=== PATIENT | male | born 1980 | race Caucasian/White ===

== ENCOUNTER 2017-06-26 16:21 | Emergency (ER) | payer SELFPAY ==
--- NOTE | 2017-06-26 17:12 | ER ---
Nurse's Notes [facility] Name: Jean Bautista Age: 37 yrs Sex: Male : 1980 Arrival Date: 06/26/2017 Time: 16:25 Bed 12 Private MD: Diagnosis: dental abscess Presentation: 06/26 16:46 Presenting complaint: Patient states: i have a bad tooth infection on my L upper side hj since yesterday;. Transition of care: patient was not received from another setting of care. Onset of symptoms was June 26, 2017. Care prior to arrival: None. 16:46 Method Of Arrival: Ambulatory hj 16:46 Acuity: ELIZA 4 hj Triage Assessment: 16:47 General: Appears in no apparent distress. uncomfortable, Behavior is calm, cooperative, hj appropriate for age. Pain: Complains of pain in left cheek and left jaw. 16:49 EENT: Reports pain. hj Historical: - Allergies: 16:47 No Known Allergies; hj - Home Meds: 16:47 None [Active]; hj - PMHx: 16:47 None; hj - PSHx: 16:47 None; hj - Immunization history:: Adult Immunizations unknown. - Social history:: Smoking status: Patient uses tobacco products, Patient/guardian denies using alcohol. Screenin:41 Abuse screen: Denies threats or abuse. Denies injuries from another. Nutritional hj screening: No deficits noted. Tuberculosis screening: No symptoms or risk factors identified. Fall Risk None identified. Assessment: 17:42 General: Appears in no apparent distress. uncomfortable, Behavior is calm, cooperative, hj appropriate for age. EENT: Reports pain since tooth pain since yesterday. Vital Signs: 16:48 BP 157 / 99; Pulse 63; Resp 18; Temp 98.0(O); Pulse Ox 99% on R/A; Weight 124.28 kg; hj Height 6 ft. 2 in. (187.96 cm); Pain 10/10; 16:48 Body Mass Index 35.18 (124.28 kg, 187.96 cm) ED Course: 16:25 Patient arrived in ED. mr 16:47 Triage completed. hj 16:48 Arm band placed on right wrist. hj 16:57 Nichole Phan [facility]C [facility]. kb 16:57 Mahesh Rodríguez MD is Attending Physician. kb 17:08 Edward Bhatti, RN is Primary Nurse. hj 17:41 No provider procedures requiring assistance completed. Patient did not have IV access hj during this emergency room visit. 17:42 Patient has correct armband on for positive identification. hj Administered Medications: 17:05 Drug: Augmentin 875 mg Route: PO; hj 17:40 Follow up: Response: No adverse reaction hj Outcome: 17:11 Discharge ordered by MD. kb 17:41 Discharged to home ambulatory, with family. hj 17:41 Condition: stable 17:41 Discharge instructions given to patient, family, Instructed on discharge instructions, follow up and referral plans. medication usage, Demonstrated understanding of instructions, follow-up care, medications, Prescriptions given X 1. 17:42 Patient left the ED. Signatures: Nichole Phan, [employer] SUPERVISOR-C [employer] SUPERVISOR-Bianca Roa mr Edward Bhatti, RN RN hj Corrections: (The following items were deleted from the chart) 16:50 16:48 Pulse 63bpm; Resp 18bpm; Pulse Ox 99% RA; Temp 98.0F Oral; 124.28 kg; Height 6 hj ft. 2 in.; BMI: 35.1; Pain 10/10; hj
--- NOTE | 2017-06-26 17:12 | EDPHYS ---
Physician Documentation [facility] Name: Jean Bautista Age: 37 yrs Sex: Male : 1980 Arrival Date: 06/26/2017 Time: 16:25 Bed 12 Private MD: ED Physician Mahesh Rodríguez HPI: 06/26 17:05 This 37 yrs old Male presents to ER via Ambulatory with complaints of kb Toothache. 17:05 The patient presents with pain, redness, swelling. The problem is located in the lower kb left second molar. Onset: The symptoms/episode began/occurred 4 day(s) ago. Duration: The symptoms are continuous, and are unchanged since they started. Modifying factors: The symptoms are alleviated by nothing, the symptoms are aggravated by nothing. Associated signs and symptoms: Pertinent positives: pain, redness in area, swelling, Pertinent negatives: anorexia, chills, dysphagia, fever, inability to eat, nausea, vomiting. Severity of symptoms: At their worst the symptoms were moderate, in the emergency department the symptoms are unchanged. The patient has not experienced similar symptoms in the past. The patient has not recently seen a physician. Historical: - Allergies: 16:47 No Known Allergies; hj - Home Meds: 16:47 None [Active]; hj - PMHx: 16:47 None; hj - PSHx: 16:47 None; hj - Immunization history:: Adult Immunizations unknown. - Social history:: Smoking status: Patient uses tobacco products, Patient/guardian denies using alcohol. ROS: 17:05 Constitutional: Negative for fever, chills, and weight loss, Cardiovascular: Negative kb for chest pain, palpitations, and edema, Respiratory: Negative for shortness of breath, cough, wheezing, and pleuritic chest pain, Abdomen/GI: Negative for abdominal pain, nausea, vomiting, diarrhea, and constipation, MS/Extremity: Negative for injury and deformity, Skin: Negative for injury, rash, and discoloration, Neuro: Negative for headache, weakness, numbness, tingling, and seizure. 17:05 ENT: Positive for dental pain, Gum pain Teeth pain Exam: 17:05 Constitutional: This is a well developed, well nourished patient who is awake, alert, kb and in no acute distress. Head/Face: Normocephalic, atraumatic. Chest/axilla: Normal chest wall appearance and motion. Nontender with no deformity. No lesions are appreciated. Cardiovascular: Regular rate and rhythm with a normal S1 and S2. No gallops, murmurs, or rubs. Normal PMI, no JVD. No pulse deficits. Respiratory: Lungs have equal breath sounds bilaterally, clear to auscultation and percussion. No rales, rhonchi or wheezes noted. No increased work of breathing, no retractions or nasal flaring. Abdomen/GI: Soft, non-tender, with normal bowel sounds. No distension or tympany. No guarding or rebound. No evidence of tenderness throughout. Skin: Warm, dry with normal turgor. Normal color with no rashes, no lesions, and no evidence of cellulitis. MS/ Extremity: Pulses equal, no cyanosis. Neurovascular intact. Full, normal range of motion. Neuro: Awake and alert, GCS 15, oriented to person, place, time, and situation. Cranial nerves II-XII grossly intact. Motor strength 5/5 in all extremities. Sensory grossly intact. Cerebellar exam normal. Normal gait. 17:05 ENT: Dental exam: gum swelling, pain, that is moderate, specifically in the lower left second molar (#18). Vital Signs: 16:48 BP 157 / 99; Pulse 63; Resp 18; Temp 98.0(O); Pulse Ox 99% on R/A; Weight 124.28 kg; hj Height 6 ft. 2 in. (187.96 cm); Pain 10/10; 16:48 Body Mass Index 35.18 (124.28 kg, 187.96 cm) MDM: 16:57 Patient medically screened. kb 17:05 Data reviewed: vital signs, nurses notes. Data interpreted: Pulse oximetry: on room air kb is 99 %. Interpretation: normal. Counseling: I had a detailed discussion with the patient and/or guardian regarding: the historical points, exam findings, and any diagnostic results supporting the discharge/admit diagnosis, the need for outpatient follow up, a dentist, to return to the emergency department if symptoms worsen or persist or if there are any questions or concerns that arise at home. Administered Medications: 17:05 Drug: Augmentin 875 mg Route: PO; 17:40 Follow up: Response: No adverse reaction Disposition: 06/27 10:48 Co-signature as Attending Physician, Mahesh Rodríguez MD I agree with the assessment and mohit plan of care. Disposition: 06/26/17 17:11 Discharged to Home. Impression: dental abscess. - Condition is Stable. - Discharge Instructions: Dental Abscess, Dental Pain, [id number]. - Prescriptions for Augmentin 875- 125 mg Oral Tablet - take 1 tablet by ORAL route every 12 hours for 7 days; 14 tablet. - Medication Reconciliation Form, Thank You Letter, Antibiotic Education, Prescription Opioid Use, Work release form form. - Follow up: Emergency Department; When: As needed; Reason: Worsening of condition. Follow up: Private Physician; When: 2 - 3 days; Reason: Recheck today's complaints, Continuance of care, Re-evaluation by your physician. Signatures: Nichole Phan, MAURI-C DIRECTOR OF LOGISTICS-Mahesh Luna MD MD cha Joaquin, Henry, RN RN
[2017-06-26] MEDS ORDERED: AMOX/K CLAV 875 MG TAB ONE (17:27)
== END 2017-06-26 17:42 | disposition home or self-care (01) ==
LOC: ER 16:21
DX: K04.7 Periapical abscess without sinus (principal)
CPT/HCPCS: 99283

== ENCOUNTER 2017-09-11 03:37 | Emergency (ER) | payer SELFPAY ==
--- NOTE | 2017-09-11 04:15 | ER ---
Nurse's Notes [facility] Name: Jean Bautista Age: 37 yrs Sex: Male : 1980 Arrival Date: 09/11/2017 Time: 03:40 Bed 16 Private MD: Diagnosis: Cellulitis of buttock;Dental caries Presentation: 09/11 03:56 Presenting complaint: Patient states: L lower tooth pain for several days and abscess aa1 to gluteal cleft that he noticed today. Reports pain and redness to sacrum. States he has had a previous abscess in the same place that he had to have surgery on a few years ago. Transition of care: patient was not received from another setting of care. Onset of symptoms was September 09, 2017. Risk Assessment: Do you want to hurt yourself or someone else? Patient reports no desire to harm self or others. Initial Sepsis Screen: Does the patient meet any 2 criteria? No. Patient's initial sepsis screen is negative. Does the patient have a suspected source of infection? Yes: Skin breakdown/wound. Care prior to arrival: None. 03:56 Method Of Arrival: Ambulatory aa1 03:56 Acuity: ELIZA 3 aa1 Historical: - Allergies: 04:08 No Known Allergies; aa1 - Home Meds: 04:08 None [Active]; aa1 - PMHx: 04:08 Hypertension; aa1 - PSHx: 04:08 None; aa1 - Immunization history:: Flu vaccine is not up to date. - Social history:: Smoking status: Patient/guardian denies using tobacco. - Ebola Screening: : No symptoms or risks identified at this time. Screenin:38 Abuse screen: Denies threats or abuse. Denies injuries from another. Nutritional bs1 screening: No deficits noted. Tuberculosis screening: No symptoms or risk factors identified. Fall Risk None identified. Assessment: 04:09 General: Appears uncomfortable, obese, Behavior is cooperative, anxious. Pain: bs1 Complains of pain in left lower back tooth/cyst noted to buttocks. Neuro: Level of Consciousness is awake, alert, obeys commands, Oriented to person, place, time, situation. Cardiovascular: Denies chest pain, shortness of breath, Heart tones S1 S2 present Capillary refill < 3 seconds Patient's skin is warm and dry. Respiratory: Airway is patent Trachea midline Respiratory effort is even, unlabored, Respiratory pattern is regular, symmetrical, Breath sounds are clear bilaterally. GI: No deficits noted. No signs and/or symptoms were reported involving the gastrointestinal system. : No deficits noted. No signs and/or symptoms were reported regarding the genitourinary system. EENT: Poor dentition noted. reports pain to bottom back left of tooth. Derm: Skin is intact, Skin is pink, warm \\T\\ dry. cyst noted to buttock area, states that Dr Dhillon has had to drain it before in the past. Musculoskeletal: Circulation, motion, and sensation intact. Capillary refill < 3 seconds. 04:39 Reassessment: Patient informed Nurse that Blood pressure 170/100 is patients "norm". bs1 Vital Signs: 03:56 BP 165 / 116; Pulse 66; Resp 16; Temp 97.7; Pulse Ox 97% on R/A; Weight 130.63 kg; aa1 Height 6 ft. 2 in. (187.96 cm); Pain 8/10; 04:39 BP 170 / 100; Pulse 68; Resp 16; Pulse Ox 100% on R/A; Pain 7/10; bs1 03:56 Body Mass Index 36.98 (130.63 kg, 187.96 cm) aa1 ED Course: 03:40 Patient arrived in ED. es 03:50 Diana Jade, RN is Primary Nurse. bs1 03:56 Arm band placed on right wrist. Patient placed in an exam room, on a stretcher. aa1 04:07 Triage completed. aa1 04:12 Leo Brothers MD is Attending Physician. tw4 04:38 Patient has correct armband on for positive identification. Bed in low position. Call bs1 light in reach. Side rails up X 1. Pulse ox on. NIBP on. 04:39 No provider procedures requiring assistance completed. Patient did not have IV access bs1 during this emergency room visit. Administered Medications: 04:35 Drug: TORadol 60 mg Route: IM; Site: left deltoid; bs1 04:41 Follow up: Response: No adverse reaction bs1 04:35 Drug: Cleocin 600 mg Route: IM; Site: right deltoid; bs1 04:41 Follow up: Response: No adverse reaction bs1 Outcome: 04:15 Discharge ordered by . tw4 04:40 Discharged to home ambulatory. bs1 04:40 Condition: stable 04:40 Discharge instructions given to patient, Instructed on discharge instructions, follow up and referral plans. medication usage, Demonstrated understanding of instructions, follow-up care, medications, Prescriptions given X 3. 04:53 Patient left the ED. eb1 Signatures: Sally Monzon RN RN aa1 Cuauhtemoc, Diana Dukes RN RN bs1 Leo Brothers MD MD tw4 Marcy Wong RN RN eb1
[2017-09-11] MEDS ORDERED: KETOROLAC 30 MG/ML INJ ONE (04:27)
[2017-09-11] MEDS ORDERED: CLINDAMYCIN 600MG/D5W 600 MG/50 ML BAG IV ONE (04:28)
--- NOTE | 2017-09-11 04:53 | EDPHYS ---
Physician Documentation [facility] Name: Jean Bautista Age: 37 yrs Sex: Male : 1980 Arrival Date: 09/11/2017 Time: 03:40 Bed 16 Private MD: ED Physician Leo Brothers HPI: 09/11 04:36 This 37 yrs old Male presents to ER via Ambulatory with complaints of tw4 INFECTED ELBOW. 04:36 This 37 yrs old Male presents to ER via Ambulatory with complaints of tw4 INFECTED buttock. 04:36 the patient presents with a swollen area of the coccyx. Description: The affected area tw4 is small, localized. Onset: The symptoms/episode began/occurred yesterday. Possible cause(s): unknown. Associated signs and symptoms: Pertinent positives: swelling, Pertinent negatives: discharge, drainage, erythema, headache, nausea, shortness of breath, vomiting. Modifying factors: the symptoms are alleviated by nothing, the symptoms are aggravated by pressure, sitting, squeezing the lesion and expressing the contents. Severity of symptoms: At their worst the symptoms were moderate, in the emergency department the symptoms are unchanged. The patient has not experienced similar symptoms in the past. Historical: - Allergies: 04:08 No Known Allergies; aa1 - Home Meds: 04:08 None [Active]; aa1 - PMHx: 04:08 Hypertension; aa1 - PSHx: 04:08 None; aa1 - Immunization history:: Flu vaccine is not up to date. - Social history:: Smoking status: Patient/guardian denies using tobacco. - Ebola Screening: : No symptoms or risks identified at this time. ROS: 04:36 Constitutional: Negative for fever, chills, and weight loss, Cardiovascular: Negative tw4 for chest pain, palpitations, and edema, Respiratory: Negative for shortness of breath, cough, wheezing, and pleuritic chest pain, Abdomen/GI: Negative for abdominal pain, nausea, vomiting, diarrhea, and constipation. 04:36 Skin: Positive for swelling. Exam: 04:36 Constitutional: This is a well developed, well nourished patient who is awake, alert, tw4 and in no acute distress. Head/Face: Normocephalic, atraumatic. Chest/axilla: Normal chest wall appearance and motion. Nontender with no deformity. No lesions are appreciated. Cardiovascular: Regular rate and rhythm with a normal S1 and S2. No gallops, murmurs, or rubs. Normal PMI, no JVD. No pulse deficits. Respiratory: Lungs have equal breath sounds bilaterally, clear to auscultation and percussion. No rales, rhonchi or wheezes noted. No increased work of breathing, no retractions or nasal flaring. Abdomen/GI: Soft, non-tender, with normal bowel sounds. No distension or tympany. No guarding or rebound. No evidence of tenderness throughout. 04:36 Skin: cellulitis, that is moderate, well demarcated, on the coccyx. Vital Signs: 03:56 BP 165 / 116; Pulse 66; Resp 16; Temp 97.7; Pulse Ox 97% on R/A; Weight 130.63 kg; aa1 Height 6 ft. 2 in. (187.96 cm); Pain 8/10; 04:39 BP 170 / 100; Pulse 68; Resp 16; Pulse Ox 100% on R/A; Pain 7/10; bs1 03:56 Body Mass Index 36.98 (130.63 kg, 187.96 cm) aa1 MDM: 04:14 Patient medically screened. tw4 04:38 Differential diagnosis: abscess, cellulitis, insect bite. Data reviewed: vital signs, tw4 nurses notes. Counseling: I had a detailed discussion with the patient and/or guardian regarding: the historical points, exam findings, and any diagnostic results supporting the discharge/admit diagnosis. Administered Medications: 04:35 Drug: TORadol 60 mg Route: IM; Site: left deltoid; bs1 04:41 Follow up: Response: No adverse reaction bs1 04:35 Drug: Cleocin 600 mg Route: IM; Site: right deltoid; bs1 04:41 Follow up: Response: No adverse reaction bs1 Disposition: 09/11/17 04:15 Discharged to Home. Impression: Cellulitis of buttock, Dental caries. - Condition is Stable. - Discharge Instructions: Cellulitis, Dental Pain, MRSA FAQs - CERVANTES. - Prescriptions for Clindamycin HCl 300 mg Oral Capsule - take 1 capsule by ORAL route every 6 hours for 10 days; 40 capsule. Ibuprofen 800 mg Oral Tablet - take 1 tablet by ORAL route every 8 hours As needed take with food; 30 tablet. Tylenol- Codeine #3 300-30 mg Oral Tablet - take 2 tablet by ORAL route every 6 hours As needed; 30 tablet. - Medication Reconciliation Form, Thank You Letter, Antibiotic Education, Prescription Opioid Use form. - Work release form (09/11/17 12:07). em1 - Follow up: Private Physician; When: As needed; Reason: Recheck today's complaints, Continuance of care, Re-evaluation by your physician. - Problem is new. - Symptoms have improved. Signatures: Sally Monzon, RN RN aa1 Diana Jade, RN RN bs1 Leo Brothers MD MD tw4 Marcy Wong RN RN eb1 Michael Maloney em1 Corrections: (The following items were deleted from the chart) 04:53 04:15 09/11/2017 04:15 Discharged to Home. Impression: Cellulitis of buttock; Dental eb1 caries. Condition is Stable. Forms are Medication Reconciliation Form, Thank You Letter, Antibiotic Education, Prescription Opioid Use. Follow up: Private Physician; When: As needed; Reason: Recheck today's complaints, Continuance of care, Re-evaluation by your physician. Problem is new. Symptoms have improved. tw4
== END 2017-09-11 04:53 | disposition home or self-care (01) ==
LOC: ER 03:37
DX: L03.317 Cellulitis of buttock (principal); K02.9 Dental caries, unspecified; I10 Essential (primary) hypertension
CPT/HCPCS: 96372; 99283

== ENCOUNTER 2019-05-01 06:43 | Emergency (ER) | payer BC, SELFPAY ==
--- NOTE | 2019-05-01 07:00 | ER ---
Nurse's Notes [facility] Name: Jean Bautista Age: 39 yrs Sex: Male : 1980 Arrival Date: 05/01/2019 Time: 06:46 Bed 7 Private MD: Diagnosis: Pilonidal cyst with abscess Presentation: 05/01 06:51 Presenting complaint: Patient states: Reports he has a reoccurring boil on the left ea side of his lower back. Reports he was given Clindamycin. Transition of care: patient was not received from another setting of care. Onset of symptoms was May 01, 2019. Risk Assessment: Do you want to hurt yourself or someone else? Patient reports no desire to harm self or others. Initial Sepsis Screen: Does the patient meet any 2 criteria? No. Patient's initial sepsis screen is negative. Does the patient have a suspected source of infection? Yes: Skin breakdown/wound. Care prior to arrival: None. 06:51 Method Of Arrival: Ambulatory ea 06:51 Acuity: ELIZA 5 ea Triage Assessment: 06:50 General: Appears uncomfortable, Behavior is calm, cooperative, appropriate for age. ea Pain: Complains of pain in buttocks. Historical: - Allergies: 06:56 No Known Allergies; ea - PMHx: 06:56 Hypertension; ea - PSHx: 06:56 None; ea - Immunization history:: Adult Immunizations up to date. - Social history:: Smoking status: Patient reports the use of cigarette tobacco products, denies chronic smoking, but will smoke occasionally. - Ebola Screening: : No symptoms or risks identified at this time. Screenin:55 Abuse screen: Denies threats or abuse. Nutritional screening: No deficits noted. ea Tuberculosis screening: No symptoms or risk factors identified. Fall Risk None identified. Assessment: 06:51 General: Appears uncomfortable, Behavior is appropriate for age. Pain: Complains of ea pain in gluteal cleft. Neuro: Level of Consciousness is awake, alert, obeys commands, Oriented to person, place, time, situation. Cardiovascular: Patient's skin is warm and dry. Respiratory: Airway is patent Respiratory effort is even, unlabored, Respiratory pattern is regular, symmetrical. Derm: Abscess located on gluteal cleft is quarter sized, is red, is raised. 07:08 General: Appears in no apparent distress. uncomfortable, Behavior is calm, cooperative, jb4 appropriate for age. Pain: Complains of pain in gluteal cleft Pain does not radiate. Pain currently is 5 out of 10 on a pain scale. Neuro: Level of Consciousness is awake, alert, obeys commands, Oriented to person, place, time, situation. Cardiovascular: Patient's skin is warm and dry. Respiratory: Airway is patent Respiratory effort is even, unlabored, Respiratory pattern is regular, symmetrical. GI: No signs and/or symptoms were reported involving the gastrointestinal system. : No signs and/or symptoms were reported regarding the genitourinary system. EENT: No signs and/or symptoms were reported regarding the EENT system. Derm: Skin is intact, Skin is pink, warm \T\ dry. Musculoskeletal: Circulation, motion, and sensation intact. Range of motion: intact in all extremities. Vital Signs: 06:56 BP 128 / 105; Pulse 98; Resp 18; Temp 98.1; Pulse Ox 99% on R/A; Weight 125.19 kg; ea Height 6 ft. 2 in. (187.96 cm); 06:56 Body Mass Index 35.44 (125.19 kg, 187.96 cm) ea ED Course: 06:46 Patient arrived in ED. es 06:47 Nichole Phan FNP-C is [facility]. kb 06:47 Mahesh Rodríguez MD is Attending Physician. kb 06:54 Triage completed. ea 06:57 Arm band placed on right wrist. Patient placed in an exam room, on a stretcher, on ea pulse oximetry. 06:57 Allergy band placed. Bed in low position. Call light in reach. Side rails up X2. ea 07:08 No provider procedures requiring assistance completed. Patient did not have IV access ea during this emergency room visit. Administered Medications: 07:07 Drug: Clindamycin 300 mg Route: PO; ea 07:07 Follow up: Response: Medication administered at discharge. ea Outcome: 06:59 Discharge ordered by . kb 07:08 Discharged to home ambulatory. ea 07:08 Condition: stable 07:08 Discharge instructions given to patient, Instructed on discharge instructions, follow up and referral plans. medication usage, Demonstrated understanding of instructions, follow-up care, medications, Prescriptions given X 1. 07:09 Patient left the ED. jb4 Signatures: Nichole Phan FNP-C TOOL AND DIE INSPECTOR-Ckb Flor Posadas James, RN RN jb4 Ricarda Whipple, RN RN ea
--- NOTE | 2019-05-01 07:00 | EDPHYS ---
Physician Documentation [facility] Name: Jean Bautista Age: 39 yrs Sex: Male : 1980 Arrival Date: 05/01/2019 Time: 06:46 Bed 7 Private MD: MERCEDEZ Physician Mahesh Rodríguez HPI: 05/01 06:57 This 39 yrs old Male presents to ER via Ambulatory with complaints of Tail kb bone pain. 06:57 The patient presents with an abscess of the gluteal cleft. Description: fluctuant, kb swollen. Onset: The symptoms/episode began/occurred years ago, but started hurting this morning. Possible cause(s): unknown. Associated signs and symptoms: Pertinent positives: swelling. Modifying factors: the symptoms are alleviated by nothing, the symptoms are aggravated by pressure, touching. Severity of symptoms: At their worst the symptoms were moderate, in the emergency department the symptoms are unchanged. The patient has experienced similar episodes in the past, multiple times. The patient has not recently seen a physician. "I have a pilonidal cyst that I've had for years. I've gone to surgeons but they won't do anything about it so I just come in when it causes pain.". Historical: - Allergies: 06:56 No Known Allergies; ea - PMHx: 06:56 Hypertension; ea - PSHx: 06:56 None; ea - Immunization history:: Adult Immunizations up to date. - Social history:: Smoking status: Patient reports the use of cigarette tobacco products, denies chronic smoking, but will smoke occasionally. - Ebola Screening: : No symptoms or risks identified at this time. ROS: 06:57 Constitutional: Negative for fever, chills, and weight loss, Neck: Negative for injury, kb pain, and swelling, Cardiovascular: Negative for chest pain, palpitations, and edema, Respiratory: Negative for shortness of breath, cough, wheezing, and pleuritic chest pain, Abdomen/GI: Negative for abdominal pain, nausea, vomiting, diarrhea, and constipation, Back: Negative for injury and pain, MS/Extremity: Negative for injury and deformity, Neuro: Negative for headache, weakness, numbness, tingling, and seizure. 06:57 Skin: Positive for abscess, of the gluteal cleft. Exam: 06:54 Constitutional: This is a well developed, well nourished patient who is awake, alert, kb and in no acute distress. Head/Face: Normocephalic, atraumatic. Neck: Trachea midline, no thyromegaly or masses palpated, and no cervical lymphadenopathy. Supple, full range of motion without nuchal rigidity, or vertebral point tenderness. No Meningismus. Chest/axilla: Normal chest wall appearance and motion. Nontender with no deformity. No lesions are appreciated. Cardiovascular: Regular rate and rhythm with a normal S1 and S2. No gallops, murmurs, or rubs. Normal PMI, no JVD. No pulse deficits. Respiratory: Lungs have equal breath sounds bilaterally, clear to auscultation and percussion. No rales, rhonchi or wheezes noted. No increased work of breathing, no retractions or nasal flaring. Abdomen/GI: Soft, non-tender, with normal bowel sounds. No distension or tympany. No guarding or rebound. No evidence of tenderness throughout. MS/ Extremity: Pulses equal, no cyanosis. Neurovascular intact. Full, normal range of motion. Neuro: Awake and alert, GCS 15, oriented to person, place, time, and situation. Cranial nerves II-XII grossly intact. Motor strength 5/5 in all extremities. Sensory grossly intact. Cerebellar exam normal. Normal gait. 06:54 Skin: abscess, that is moderate sized, of the gluteal cleft, with fluctuance, that is moderate. Vital Signs: 06:56 BP 128 / 105; Pulse 98; Resp 18; Temp 98.1; Pulse Ox 99% on R/A; Weight 125.19 kg; ea Height 6 ft. 2 in. (187.96 cm); 06:56 Body Mass Index 35.44 (125.19 kg, 187.96 cm) ea MDM: 06:50 Patient medically screened. kb 06:54 Data reviewed: vital signs, nurses notes. Data interpreted: Pulse oximetry: on room air kb is 100 %. Interpretation: normal. Counseling: I had a detailed discussion with the patient and/or guardian regarding: the historical points, exam findings, and any diagnostic results supporting the discharge/admit diagnosis, the need for outpatient follow up, a general surgeon, to return to the emergency department if symptoms worsen or persist or if there are any questions or concerns that arise at home. ED course: Pt reports he has had this cyst for years and needs antibiotics about twice a year for it. Pt does not want it lanced because the last time it was lanced it bled for a month and he was hospitalized for 2 days due to the bleeding. Reports antibiotics work without it being lanced. Administered Medications: 07:07 Drug: Clindamycin 300 mg Route: PO; ea 07:07 Follow up: Response: Medication administered at discharge. juan Disposition: 07:38 Co-signature as Attending Physician, Mahesh Rodríguez MD I agree with the assessment and mohit plan of care. Disposition: 05/01/19 06:59 Discharged to Home. Impression: Pilonidal cyst with abscess. - Condition is Stable. - Discharge Instructions: Pilonidal Cyst. - Prescriptions for Clindamycin HCl 300 mg Oral Capsule - take 1 capsule by ORAL route every 6 hours for 10 days; 40 capsule. - Work release form, Medication Reconciliation Form, Thank You Letter, Antibiotic Education, Prescription Opioid Use form. - Follow up: Emergency Department; When: As needed; Reason: Worsening of condition. Follow up: Private Physician; When: 2 - 3 days; Reason: Recheck today's complaints, Continuance of care, Re-evaluation by your physician. Signatures: Nichole Phan, DRAPERY HEAD FORMER-C DRAPERY HEAD FORMER-Ckb Mahesh Rodríguez MD MD cha Bryson, James RN HEATHER jbRicarda De La Cruz RN RN ea Corrections: (The following items were deleted from the chart) 07:09 06:59 05/01/2019 06:59 Discharged to Home. Impression: Pilonidal cyst with abscess. jb4 Condition is Stable. Forms are Medication Reconciliation Form, Thank You Letter, Antibiotic Education, Prescription Opioid Use. Follow up: Emergency Department; When: As needed; Reason: Worsening of condition. Follow up: Private Physician; When: 2 - 3 days; Reason: Recheck today's complaints, Continuance of care, Re-evaluation by your physician. kb
[2019-05-01 12:08] VITALS: BP 128/105; TEMP 98.1; O2SAT 99
== END 2019-05-01 07:09 | disposition home or self-care (01) ==
LOC: ER 06:43
DX: L05.01 Pilonidal cyst with abscess (principal)
CPT/HCPCS: 99283

== ENCOUNTER 2022-08-08 07:02 | Emergency (ER) | payer BC ==
--- OUTSIDE RECORDS SUMMARY | 2022-08-08 07:04 | XMS REPORT | Continuity of Care Document ---
:1980 Author Organization [facility] t Address [address] [place] [address] Care Team Providers Name Role Phone RITA LOUIS Primary Care Physician Unavailable KAITY SAENZ Attending Clinician Unavailable Kaity Saenz MD Attending Clinician KAITY SAENZ Admitting Clinician Unavailable Payers Payer Name Policy Type Policy Number Effective Date Expiration Date S [facility] - [id number] 2019 00:00:00 OUT OF STATE Problems This patient has no known problems. Allergies, Adverse Reactions, Alerts Allergy Allergy Status Severity Reaction(s) Onset Inactive Treating Comm ents Source Name Type Date Date Clinician NO KNOWN Drug Active Univers ALLERGIE Class ity of [facility] Social History Social Habit Start Date Stop Date Quantity Comments Source Exposure to 2022-06-29 2022-07-09 Not sure [facility] SARS-CoV-2 (event) 00:00:00 05:55:00 Medica l Branch Sex Assigned At [birth year] [facility] [place] 00:00:00 00:00:00 Medical Branch Smoking Status Start Date Stop Date Source Tobacco smoking consumption [facility] Medical unknown Branch Medications Ordered Filled Start Stop Current Ordering Indication Dosage Frequency Signature Comments Components Source Medication Medication Date Date Medication? Clinician (SIG) Name Name ketorolac 30mg 30 mg, Unive rs (TORADOL) 07-09 Slow IV ity of injection 12:15: 11:21 Push, [place] 30 mg 00 :00 ONCE, 1 Medical dose, On Branch 07/09/22 at 0715, Routine cyclobenzap Yes [id number] 10mg Take 1 Univers rine 10 mg 3-31 tablet by ity of tablet 00:00: mouth 3 [place] 00 (three) Medical times [place] daily as needed for Muscle Spasms. predniSONE 2022- Yes [id number] 50mg Take 5 Univers 10 mg 3-31 04-06 tablets by ity of tablet 00:00: 04:59 mouth in [place] 00 :00 the Medical morning Branch for 5 days. Vital Signs Vital Name Observation Time Observation Value Comments Source Systolic blood 2022-07-09 12:32:00 140 mm[Hg] [facility] Diastolic blood 2022-07-09 12:32:00 94 mm[Hg] [facility] Heart rate 2022-07-09 12:32:00 79 /min [facility] Respiratory rate 2022-07-09 12:32:00 18 /min General acute hospital Oxygen saturation in 2022-07-09 12:32:00 93 /min [facility] Arterial blood by [facility] Pulse oximetry [place] Body temperature 2022-07-09 10:56:32 37.33 [facility] Body height 2022-07-09 10:56:32 188 cm [facility] Body weight 2022-07-09 10:56:32 136.079 kg [facility] BMI 2022-07-09 10:56:32 38.52 kg/m2 [facility] Procedures Procedure Date / Time Performed Performing Clinician Sourc e URINALYSIS 2022-07-09 12:27:00 Kaity Saenz [facility] CT ABDOMEN PELVIS WO 2022-07-09 11:38:37 Kaity Saenz [facility] LIPASE 2022-07-09 11:05:00 Kaity Saenz [facility] COMP. METABOLIC PANEL 2022-07-09 11:05:00 Kiaty Saenz [facility] ([id number]) [facility] CBC WITH DIFF 2022-07-09 11:05:00 Kaity Saenz [facility] CONSENT/REFUSAL FOR 2022-07-09 10:52:27 Doctor Unassigned, No Un [facility] DIAGNOSIS AND Name Medical Branch TREATMENT Encounters Start End Encounter Admission Attending Care Care Encounter Source Date/Time Date/Time Type Type Clinicians Facility Department ID 2022-07-09 2022-07-09 Emergency X DANY [facility] ERT [id number] Univers 05:51:00 09:05:00 [facility]22-[facility] 2022-07-09 [facility] [id number] Univers 05:51:00 09:05:00 Kaity Nam [id number] [id number] [place] [id number] Branch Results Test Description Test Time Test Comments Results Result Comments Source Complete Metabolic Panel 2022-07-09 11:29:20 Test Item Value Reference Range Interpretation Comme nts NA (test code = 9396414271) 140 mmol/L 135-145 K (test code = 6595667490) 3.6 mmol/L 3.5-5.0 CL (test code = 6522119419) 107 mmol/L 98-108 CO2 TOTAL (test code = 1164077232) 23 mmol/L 23-31 AGAP (test code = 8519714718) 10 2-16 BUN (test code = 5277208200) 20 mg/dL 7-23 GLUCOSE (test code = 2447499894) 111 mg/dL 70-110 H CREATININE (test code = 0.97 mg/dL 0.60-1.25 5826784115) TOTAL BILI (test code = 0.4 mg/dL 0.1-1.1 2879078275) CALCIUM (test code = 1956286204) 8.9 mg/dL 8.6-10.6 T PROTEIN (test code = 1807995056) 7.3 g/dL 6.3-8.2 ALBUMIN (test code = 9557474553) 4.4 g/dL 3.5-5.0 ALK PHOS (test code = 1697369958) 84 U/L 34-122 ALTv (test code = 1742-6) 59 U/L 5-50 H AST(SGOT) (test code = 5963255808) 39 U/L 13-40 eGFR (test code = 0377805403) 84.1 mL/min/1.73m2 LORNA (test code = LORNA) Association of Glomerular Filtration Rate (GFR) and Staging of Kidney Disease* + +-------- + ------+| GFR (mL/min/1.73 m2) ?| With Kidney Damage ?| ?Without Kidney Damage+ +-- + +| ?>90 ?| ?Stage one ?| ? Normal ?+ +------- + -------+| ?60-89 ?| ?Stage two ?| ? Decreased GFR ? + +-------- + ------+| ?30-59 ?| ?Stage three ?| ? Stage three ? + +-------- + ------+| ?15-29 ?| ?Stage four ? | ? Stage four ?+ +------- + -------+| ?<15 (or dialysis) ? ?| ?Stage five ? | ? Stage five ?+ +------- + -------+ *Each stage assumes the associated GFR level has been in effect for at least three months. ?Stages 1 to 5, with or without kidney disease, indicate chronic kidney disease. Notes: Determination of stages one and two (with eGFR >59mL/min/1.73 m2) requires estimation of kidney damage for at least three months as defined by structural or functional abnormalities of the kidney, manifested by either:Pathological abnormalities or Markers of kidney damage (including abnormalities in the composition of the blood or urine or abnormalities in imaging tests). Lab Interpretation (test code = Abnormal 32722-8) [facility], [id number] 11:28:39 Test Item Value Reference Range Interpretation Comments LIPASE (test code = 4924212075) 70 U/L 0-220 Lab Interpretation (test code = Normal 17446-5) [facility] with [id number] 11:15:22 Test Item Value Reference Range Interpretation Comments WBC (test code = 10.77 See_Comment H [Automated 1454-2) message] The sy stem which generated this result transmitted reference range : 4.20 - 10.70 10*3/?L. The reference range was not used to interpret this result as normal/abnormal . RBC (test code = 5.16 See_Comment [Automated 789-8) message] The sy stem which generated this result transmitted reference range : 4.26 - 5.52 10*6/?L. The reference range was not used to interpret this result as normal/abnormal . HGB (test code = 14.6 g/dL 12.2-16.4 718-7) HCT (test code = 42.7 % 38.4-49.3 4544-3) MCV (test code = 82.8 fL 81.7-95.6 787-2) MCH (test code = 28.3 pg 26.1-32.7 785-6) MCHC (test code = 34.2 g/dL 31.2-35.0 786-4) RDW-SD (test code = 40.3 fL 38.5-51.6 89893-7) RDW-CV (test code = 13.5 % 12.1-15.4 788-0) PLT (test code = 232 See_Comment [Automated 777-3) message] The sy stem which generated this result transmitted reference range : 150 - 328 10*3/ ?L. The reference r sony was not used to interpret this result as normal/abnormal . MPV (test code = 9.7 fL 9.8-13.0 L 86750-6) NRBC/100 WBC (test 0.0 See_Comment [Automat ed code = 4682241372) message] The system which generated this result transmitted reference range : 0.0 - 10.0 /100 WBCs. The refer ence range was not u sed to interpret th is result as normal/abnormal . NRBC x10^3 (test code See_Comment [Auto mated = 2322620575) message] The s ystem which generated this result transmitted reference range : 10*3/?L. The reference range was not used to interpret this result as normal/abnormal . GRAN MAT (NEUT) % 61.1 % (test code = 770-8) IMM GRAN % (test code 0.50 % = 5506378449) LYMPH % (test code = 28.0 % 736-9) MONO % (test code = 8.4 % 5905-5) EOS % (test code = 1.4 % 713-8) BASO % (test code = 0.6 % 706-2) GRAN MAT x10^3(ANC) 6.58 10*3/uL 1.99-6.95 (test code = 7388621019) IMM GRAN x10^3 (test 0.05 10*3/uL 0.00-0.06 code = 6394632934) LYMPH x10^3 (test code 3.02 10*3/uL 1.09-3.23 = 731-0) MONO x10^3 (test code 0.90 10*3/uL 0.36-1.02 = 742-7) EOS x10^3 (test code = 0.15 10*3/uL 0.06-0.53 711-2) BASO x10^3 (test code 0.07 10*3/uL 0.01-0.09 = 704-7) Lab Interpretation Abnormal (test code = 92400-2) [facility]"
[2022-08-08] MEDS ORDERED: IBUPROFEN 200 MG TAB PO ONE (07:37)
[2022-08-08] MEDS ORDERED: LIDOCAINE 1% W/EPI 1:100,000 10 ML VIAL ONE (07:38)
[2022-08-08] MEDS ORDERED: ACETAMINOPHEN 500 MG TAB ONE (07:48)
--- NOTE | 2022-08-08 08:02 | ER ---
Nurse's Notes [facility] Name: Jean Bautista Age: 42 yrs Sex: Male : 1980 Arrival Date: 08/08/2022 Time: 07:02 Bed 20 Private MD: Diagnosis: Cellulitis of buttock;Cutaneous abscess of buttock Presentation: 08/08 07:15 Chief complaint: Patient states: "I have a back cyst that I need drained". Pt states aa5 "It's been there all my life and every once in a while it flares up". Pt also reports fever. Coronavirus screen: At this time, the client does not indicate any symptoms associated with coronavirus-19. Ebola Screen: Patient denies travel to an Ebola-affected area in the 21 days before illness onset. Initial Sepsis Screen: Does the patient meet any 2 criteria? Temp <36.0*C (96.8*F)) or > 38.3*C (100.9*F). HR > 90 bpm. Yes Does the patient have a suspected source of infection? Yes:. Risk Assessment: Do you want to hurt yourself or someone else? Patient reports no desire to harm self or others. Onset of symptoms was August 06, 2022. 07:15 Method Of Arrival: Ambulatory aa5 07:15 Acuity: ELIZA 3 aa5 Historical: - Allergies: 07:17 No Known Allergies; aa5 - PMHx: 07:17 Hypertension; aa5 - PSHx: 07:17 None; aa5 - Immunization history:: Adult Immunizations unknown. - Social history:: Smoking status: Patient reports the use of cigarette tobacco products. Screenin:15 [facility] ED Fall Risk Assessment (Adult) History of falling in the last 3 months, kc6 including since admission No falls in past 3 months (0 pts) Confusion or Disorientation No (0 pts) Intoxicated or Sedated No (0 pts) Impaired Gait No (0 pts) Mobility Assist Device Used No (0 pt) Altered Elimination No (0 pt) Score/Fall Risk Level 0 - 2 = Low Risk Oriented to surroundings, Maintained a safe environment, Educated pt \\T\\ family on fall prevention, incl call for assistance when getting out of bed, Assessed \\T\\ reinforced patient's understanding of fall precautions, Hourly rounding (assess needs \\T\\ fall precautionary measures) done. Abuse screen: Denies threats or abuse. Denies injuries from another. Nutritional screening: No deficits noted. Tuberculosis screening: No symptoms or risk factors identified. Assessment: 07:15 General: Appears in no apparent distress. uncomfortable, obese, well groomed, Behavior kc6 is calm, cooperative, appropriate for age. Pain: Complains of pain in buttocks Pain does not radiate. Neuro: Lomas Agitation-Sedation Scale (RASS): 0 - Alert and Calm Level of Consciousness is awake, alert, obeys commands, Oriented to person, place, time, situation, Appropriate for age. Cardiovascular: Capillary refill < 3 seconds. Respiratory: Airway is patent Trachea midline Respiratory effort is even, unlabored, Respiratory pattern is regular, symmetrical. GI: No signs and/or symptoms were reported involving the gastrointestinal system. : No signs and/or symptoms were reported regarding the genitourinary system. EENT: No signs and/or symptoms were reported regarding the EENT system. Derm: Skin is pink, warm \\T\\ dry. Abscess located on buttocks. Musculoskeletal: No signs and/or symptoms reported regarding the musculoskeletal system. Circulation, motion, and sensation intact. Capillary refill < 3 seconds, Range of motion: intact in all extremities. 08:15 Reassessment: Patient appears in no apparent distress at this time. No changes from kc6 previously documented assessment. Patient and/or family updated on plan of care and expected duration. Pain level reassessed. Patient is alert, oriented x 3, equal unlabored respirations, skin warm/dry/pink. Patient denies pain at this time. Patient states feeling better. Patient states symptoms have improved. Vital Signs: 07:15 BP 143 / 84; Pulse 109; Resp 20 S; Temp 101.3(TE); Pulse Ox 95% on R/A; Weight 148.32 aa5 kg (R); Height 6 ft. 2 in. (R); 08:36 BP 146 / 92; Pulse 99; Resp 18 S; Temp 98.3(O); Pulse Ox 95% on R/A; Pain 0/10; kc6 07:15 Body Mass Index 41.98 (148.32 kg, 187.96 cm) aa5 08:36 Pain Scale: [facility] ED Course: 07:06 Patient arrived in ED. am2 07:13 Arm band placed on. aa5 07:15 Patient has correct armband on for positive identification. Placed in gown. Bed in low kc6 position. Call light in reach. Side rails up X2. 07:17 Triage completed. aa5 07:17 Horacio Corrales MD is Attending Physician. jr11 07:19 Trini Romo, RN is Primary Nurse. kc6 08:38 No provider procedures requiring assistance completed. Patient did not have IV access kc6 during this emergency room visit. Administered Medications: 07:35 Drug: Lidocaine-Epinephrine Infiltration -1%: (1:100,000) 10 ml {Note: to bedside.} kc6 Volume: 20 ml; Route: Infiltration; 08:38 Follow up: Response: No adverse reaction; Pain is decreased kc6 07:35 Drug: Clindamycin PO 450 mg Route: PO; kc6 08:38 Follow up: Response: No adverse reaction kc6 07:40 Not Given (Physician Discretion): Ibuprofen PO 600 mg PO once kc6 07:49 Drug: Acetaminophen PO 1000 mg Route: PO; kc6 08:38 Follow up: Response: No adverse reaction; Temperature is decreased; Pain is decreased kc6 08:34 Not Given (Physician Discretion): Bacitracin Topical Ointment (500 unit/g) 1 kc6 application Topical once Medication: 08:39 VIS not applicable for this client. kc6 Outcome: 08:02 Discharge ordered by . jr11 08:38 Discharged to home ambulatory. kc6 08:38 Condition: stable 08:38 Discharge instructions given to patient, Instructed on discharge instructions, follow up and referral plans. medication usage, Demonstrated understanding of instructions, follow-up care, medications, Prescriptions given X 1. 08:39 Patient left the ED. kc6 Signatures: Savita Starks, RN RN aa5 Sheree Daniels am2 Horacio Corrales MD MD jr11 Trini Romo, HEATHER RN kc6 Corrections: (The following items were deleted from the chart) 07:20 07:15 Chief complaint: Patient states: "I have a penile cyst that I need drained". Pt aa5 states "It's been there all my life and every once in a while it flares up". Pt also reports fever. aa5
--- NOTE | 2022-08-08 08:03 | EDPHYS ---
Physician Documentation [facility] Name: Jean Bautista Age: 42 yrs Sex: Male : 1980 Arrival Date: 08/08/2022 Time: 07:02 Bed 20 Private MD: ED Physician Horacio Corrales HPI: 08/08 08:05 This 42 yrs old Male presents to ER via Ambulatory with complaints of Cyst. jr11 08:05 The patient presents with an abscess of the buttocks, The patient presents with jr11 cellulitis of the buttocks. Description: The affected area is moderate sized, localized, draining, erythematous, hot, streaking, swollen, tense. Onset: The symptoms/episode began/occurred 2 day(s) ago. Associated signs and symptoms: Pertinent positives: fever, Pertinent negatives: discharge, foreign body sensation. Modifying factors: the symptoms are alleviated by nothing, the symptoms are aggravated by pressure, squeezing the lesion and expressing the contents, touching. Severity of symptoms: At their worst the symptoms were moderate, in the emergency department the symptoms are actually worse. Historical: - Allergies: 07:17 No Known Allergies; aa5 - PMHx: 07:17 Hypertension; aa5 - PSHx: 07:17 None; aa5 - Immunization history:: Adult Immunizations unknown. - Social history:: Smoking status: Patient reports the use of cigarette tobacco products. ROS: 08:05 All other systems are negative. jr11 Exam: 08:05 Constitutional: This is a well developed, well nourished patient who is awake, alert, jr11 and in no acute distress. Head/Face: Normocephalic, atraumatic. ENT: Nares patent. No nasal discharge, no septal abnormalities noted. Oropharynx with no redness, swelling, or masses, exudates, or evidence of obstruction, uvula midline. Mucous membranes moist. Chest/axilla: Normal chest wall appearance and motion. Nontender with no deformity. No lesions are appreciated. Cardiovascular: Regular rate and rhythm with a normal S1 and S2. No gallops, murmurs, or rubs. Normal PMI, no JVD. No pulse deficits. Abdomen/GI: Soft, non-tender, with normal bowel sounds. No distension or tympany. No guarding or rebound. No evidence of tenderness throughout. Skin: tense inter glut fold with +fluctuance 4x5cm MS/ Extremity: Pulses equal, no cyanosis. Neurovascular intact. Full, normal range of motion. Neuro: Awake and alert, GCS 15, oriented to person, place, time, and situation. No gross motor or sensory deficits. Vital Signs: 07:15 BP 143 / 84; Pulse 109; Resp 20 S; Temp 101.3(TE); Pulse Ox 95% on R/A; Weight 148.32 aa5 kg (R); Height 6 ft. 2 in. (R); 08:36 BP 146 / 92; Pulse 99; Resp 18 S; Temp 98.3(O); Pulse Ox 95% on R/A; Pain 0/10; kc6 07:15 Body Mass Index 41.98 (148.32 kg, 187.96 cm) aa5 08:36 Pain Scale: Adult kc6 Procedures: 08:05 I \T\ D: Incision and drainage was performed for an abscess of the pilonidal cyst Prepped jr11 with Betadine, Anesthetized with 5 ml's 1% Lidocaine w/ Epi. Incised with #11 blade. Drained moderate amount Packed with Dressing: sterile 4x4 gauze, the patient tolerated the procedure well. MDM: 07:25 Patient medically screened. jr11 08:05 Differential diagnosis: abscess, cellulitis. Data reviewed: vital signs, nurses notes. jr11 Consideration of Admission/Observation Escalation of care including admission/observation considered. pt refuses, he just wants it lanced. He understands to return if worsening. He does meet SIRS criteria, but does not want lab work at this point. 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 . Administered Medications: 07:35 Drug: Lidocaine-Epinephrine Infiltration -1%: (1:100,000) 10 ml {Note: to bedside.} kc6 Volume: 20 ml; Route: Infiltration; 08:38 Follow up: Response: No adverse reaction; Pain is decreased kc6 07:35 Drug: Clindamycin PO 450 mg Route: PO; kc6 08:38 Follow up: Response: No adverse reaction kc6 07:40 Not Given (Physician Discretion): Ibuprofen PO 600 mg PO once kc6 07:49 Drug: Acetaminophen PO 1000 mg Route: PO; kc6 08:38 Follow up: Response: No adverse reaction; Temperature is decreased; Pain is decreased kc6 08:34 Not Given (Physician Discretion): Bacitracin Topical Ointment (500 unit/g) 1 kc6 application Topical once Disposition Summary: 08/08/22 08:02 Discharge Ordered Location: Home [facility] Condition: Stable [facility] Diagnosis - Cellulitis of buttock jr11 - Cutaneous abscess of buttock jr11 Followup: jr - With: Private Physician - When: 2 - 3 days - Reason: Wound Recheck, Re-evaluation by your physician Discharge Instructions: - Discharge Summary Sheet jr11 - Skin Abscess jr11 - Cellulitis, Adult jr Forms: - Medication Reconciliation Form jr11 - Thank You Letter jr11 - Antibiotic Education jr11 - Prescription Opioid Use jr11 - Work release form kc6 Prescriptions: - Clindamycin HCl 150 mg Oral Capsule - take 3 capsule by ORAL route every 8 hours for 10 days; 90 capsule; Refills: 0, jr11 Product Selection Permitted Signatures: Savita Starks RN RN aa5 Horacio Corrales MD MD jr11 Trini Romo RN RN kc6
[2022-08-08 08:46] VITALS: O2SAT 95
[2022-08-08 08:49] VITALS: BP 146/92; TEMP 98.3
== END 2022-08-08 08:39 | disposition home or self-care (01) ==
LOC: ER 07:02
PROC: 0H98XZZ Drainage of Buttock Skin, External Approach (ICD-10-PCS; principal; 2022-08-08)
DX: L03.317 Cellulitis of buttock (principal); Z72.0 Tobacco use
CPT/HCPCS: 99283

== ENCOUNTER 2022-08-29 15:00 | Emergency (ER) | payer BC ==
--- OUTSIDE RECORDS SUMMARY | 2022-08-29 15:04 | XMS REPORT | Continuity of Care Document ---
:1980 Author Organization [facility] t Address [address] [place] [address] Care Team Providers Name Role Phone RITA LOUIS Primary Care Physician Unavailable KAITY SAENZ Attending Clinician Unavailable Kaity Saenz MD Attending Clinician KAITY SAENZ Admitting Clinician Unavailable Payers Payer Name Policy Type Policy Number Effective Date Expiration Date [facility] - [id number] 2019 00:00:00 OUT OF STATE Problems This patient has no known problems. Allergies, Adverse Reactions, Alerts Allergy Allergy Status Severity Reaction(s) Onset Inactive Treating Comm ents Source Name Type Date Date Clinician NO KNOWN Drug Active [facility] ALLERGIE Class ity of [facility] Medical [place] Social History Social Habit Start Date Stop Date Quantity Comments Source Exposure to 2022-06-29 2022-07-09 Not sure [facility] SARS-CoV-2 (event) 00:00:00 05:55:00 Medica l Branch Sex Assigned At [birth year] [facility] 00:00:00 00:00:00 Medical Branch Smoking Status Start Date Stop Date Source Tobacco smoking consumption [facility] Medical unknown Branch Medications Ordered Filled Start Stop Current Ordering Indication Dosage Frequency Signature Comments Components Source Medication Medication Date Date Medication? Clinician (SIG) Name Name ketorolac 30mg 30 mg, Unive rs (TORADOL) 07-09 Slow IV ity of injection 12:15: 11:21 Push, [place] 30 mg 00 :00 ONCE, 1 Medical dose, On Branch 07/09/22 at 0715, Routine cyclobenzap Yes [id number] 10mg Take 1 Univers rine 10 mg 3-31 tablet by ity of tablet 00:00: mouth 3 00 (three) Medical times Branch daily as needed for Muscle Spasms. predniSONE 2022- Yes [id number] 50mg Take 5 Univers 10 mg 3-31 04-06 tablets by ity of tablet 00:00: 04:59 mouth in [place] 00 :00 the Medical morning Branch for 5 days. Vital Signs Vital Name Observation Time Observation Value Comments Source Systolic blood 2022-07-09 12:32:00 140 mm[Hg] [facility] [place] Diastolic blood 2022-07-09 12:32:00 94 mm[Hg] [facility] Heart rate 2022-07-09 12:32:00 79 /min [facility] Respiratory rate 2022-07-09 12:32:00 18 /min [facility] Oxygen saturation in 2022-07-09 12:32:00 93 /min [facility] Arterial blood by [facility] Pulse oximetry [place] Body temperature 2022-07-09 10:56:32 37.33 Adia [facility] Body height 2022-07-09 10:56:32 188 cm [facility] Body weight 2022-07-09 10:56:32 136.079 kg [facility] BMI 2022-07-09 10:56:32 38.52 kg/m2 [facility] Procedures Procedure Date / Time Performed Performing Clinician Sour e URINALYSIS 2022-07-09 12:27:00 Kaity Saenz [facility] CT ABDOMEN PELVIS WO 2022-07-09 11:38:37 Kaity Saenz [facility] CONTRAST [facility] LIPASE 2022-07-09 11:05:00 Kaity Saenz [facility] COMP. METABOLIC PANEL 2022-07-09 11:05:00 Kaity Saenz [facility] ([id number]) [facility] CBC WITH DIFF 2022-07-09 11:05:00 Kaity Saenz [facility] CONSENT/REFUSAL FOR 2022-07-09 10:52:27 Doctor Unassigned, No Un [facility] DIAGNOSIS AND Name Medical Branch TREATMENT Encounters Start End Encounter Admission Attending Care Care Encounter Source Date/Time Date/Time Type Type Clinicians Facility Department ID 2022-07-09 2022-07-09 Emergency X [facility] ERT [id number] Univers 05:51:00 09:05:00 [facility]-07-09 2022-07-09 Emergency [facility] [id number] Univers 05:51:00 09:05:00 Kaity [id number] [id number] [place] [id number] Branch Results Test Description Test Time Test Comments Results Result Comments Source Complete Metabolic Panel 2022-07-09 11:29:20 Test Item Value Reference Range Interpretation Comme nts NA (test code = 7552869533) 140 mmol/L 135-145 K (test code = 6117815348) 3.6 mmol/L 3.5-5.0 CL (test code = 4051128577) 107 mmol/L 98-108 CO2 TOTAL (test code = 3743521424) 23 mmol/L 23-31 AGAP (test code = 6098798878) 10 2-16 BUN (test code = 9381690349) 20 mg/dL 7-23 GLUCOSE (test code = 1286957333) 111 mg/dL 70-110 H CREATININE (test code = 0.97 mg/dL 0.60-1.25 5608003829) TOTAL BILI (test code = 0.4 mg/dL 0.1-1.1 9725918109) CALCIUM (test code = 5844184376) 8.9 mg/dL 8.6-10.6 T PROTEIN (test code = 5207073240) 7.3 g/dL 6.3-8.2 ALBUMIN (test code = 1596532689) 4.4 g/dL 3.5-5.0 ALK PHOS (test code = 9649835638) 84 U/L 34-122 ALTv (test code = 1742-6) 59 U/L 5-50 H AST(SGOT) (test code = 6526102406) 39 U/L 13-40 eGFR (test code = 1071422189) 84.1 mL/min/1.73m2 LORNA (test code = LORNA) [...] tests). Lab Interpretation (test code = Abnormal 24828-4) [facility] [id number] 11:28:39 Test Item Value Reference Range Interpretation Comments LIPASE (test code = 6895678228) 70 U/L 0-220 Lab Interpretation (test code = Normal 14341-5) [facility] with [id number] 11:15:22 Test Item Value Reference Range Interpretation Comments WBC (test code = 10.77 See_Comment H [Automated 2186-2) message] The sy stem which generated this [...] RDW-SD (test code = 40.3 fL 38.5-51.6 39194-0) RDW-CV (test code = 13.5 % 12.1-15.4 788-0) PLT (test code = 232 See_Comment [Automated 777-3) message] The sy stem which generated this result transmitted reference range : 150 - 328 10*3/ ?L. The reference r sony was not used to interpret this result as normal/abnormal . MPV (test code = 9.7 fL 9.8-13.0 L 73576-1) NRBC/100 WBC (test 0.0 See_Comment [Automat ed code = 4608637600) message] The system which generated this result transmitted reference range : 0.0 - 10.0 /100 WBCs. The refer ence range was not u sed to interpret th is result as normal/abnormal . NRBC x10^3 (test code See_Comment [Auto mated = 3469227797) message] The s ystem which generated this result transmitted reference range : 10*3/?L. The reference range was not used to interpret this result as normal/abnormal . GRAN MAT (NEUT) % 61.1 % (test code = 770-8) IMM GRAN % (test code 0.50 % = 9952788238) LYMPH % (test code = 28.0 % 736-9) MONO % (test code = 8.4 % 5905-5) EOS % (test code = 1.4 % 713-8) BASO % (test code = 0.6 % 706-2) GRAN MAT x10^3(ANC) 6.58 10*3/uL 1.99-6.95 (test code = 2504489789) IMM GRAN x10^3 (test 0.05 10*3/uL 0.00-0.06 code = 3579959063) LYMPH x10^3 (test code 3.02 10*3/uL 1.09-3.23 = 731-0) MONO x10^3 (test code 0.90 10*3/uL 0.36-1.02 = 742-7) EOS x10^3 (test code = 0.15 10*3/uL 0.06-0.53 711-2) BASO x10^3 (test code 0.07 10*3/uL 0.01-0.09 = 704-7) Lab Interpretation Abnormal (test code = 20326-7) [facility]"
--- NOTE | 2022-08-29 15:27 | ER ---
Nurse's Notes [facility] Name: Jean Bautista Age: 42 yrs Sex: Male : 1980 Arrival Date: 08/29/2022 Time: 15:00 Bed 17 Private MD: Diagnosis: Pilonidal cyst without abscess Presentation: 08/29 15:08 Chief complaint: Patient states: fell out of shower this morning and my cyst opened up iw on my tailbone , it started draining and they wont let me go back without a work note. Coronavirus screen: At this time, the client does not indicate any symptoms associated with coronavirus-19. Ebola Screen: Patient negative for fever greater than or equal to 101.5 degrees Fahrenheit, and additional compatible Ebola Virus Disease symptoms Patient denies exposure to infectious person. Patient denies travel to an Ebola-affected area in the 21 days before illness onset. No symptoms or risks identified at this time. 15:08 Method Of Arrival: Ambulatory iw 15:10 Initial Sepsis Screen: Does the patient meet any 2 criteria? No. Patient's initial iw sepsis screen is negative. Does the patient have a suspected source of infection? No. Patient's initial sepsis screen is negative. Risk Assessment: Do you want to hurt yourself or someone else? Patient reports no desire to harm self or others. Onset of symptoms was August 29, 2022. 15:10 Acuity: ELIZA 4 iw Historical: - Allergies: 15:10 No Known Allergies; iw - PMHx: 15:10 Hypertension; iw Screenin:03 [facility] ED Fall Risk Assessment (Adult) History of falling in the last 3 months, vg1 including since admission No falls in past 3 months (0 pts). Abuse screen: Denies threats or abuse. Denies injuries from another. Nutritional screening: No deficits noted. Tuberculosis screening: No symptoms or risk factors identified. Assessment: 16:03 General: Appears in no apparent distress. comfortable, Behavior is calm, cooperative. vg1 Pain: Denies pain. Derm: Reports cyst to "tailbone". Vital Signs: 15:08 BP 145 / 96; Pulse 70; Resp 16; Temp 97.2; Pulse Ox 100% on R/A; Weight 141.97 kg; iw Height 6 ft. 2 in. ; 15:08 Body Mass Index 40.19 (141.97 kg, 187.96 cm) ED Course: 15:02 Patient arrived in ED. ts1 15:10 Triage completed. iw 15:10 Arm band placed on. 15:11 Arben Leo PA is PHCP. [facility] 15:11 Naif Holloway MD is Attending Physician. [facility] 16:03 Gaby Walden, RN is Primary Nurse. vg1 16:03 Patient has correct armband on for positive identification. Bed in low position. Call vg1 light in reach. 16:03 No provider procedures requiring assistance completed. Patient did not have IV access vg1 during this emergency room visit. Administered Medications: No medications were administered Medication: 16:03 VIS not applicable for this client. vg1 Outcome: 15:26 Discharge ordered by . [facility] 16:03 Discharged to home ambulatory. vg1 16:03 Condition: good 16:03 Discharge instructions given to patient, Instructed on discharge instructions, follow up and referral plans. Demonstrated understanding of instructions, follow-up care. 16:04 Patient left the ED. vg1 Signatures: Arben Leo PA PA jmm Williams, Irene, RN RN Gaby Walden, RN RN vg1 Melissa Calloway PAS PAS ts1
--- NOTE | 2022-08-29 15:27 | EDPHYS ---
Physician Documentation [facility] Name: Jean Bautista Age: 42 yrs Sex: Male : 1980 Arrival Date: 08/29/2022 Time: 15:00 Bed 17 Private MD: ED Physician Naif Holloway Historical: - Allergies: 08/29 15:10 No Known Allergies; iw - PMHx: 15:10 Hypertension; iw Vital Signs: 15:08 BP 145 / 96; Pulse 70; Resp 16; Temp 97.2; Pulse Ox 100% on R/A; Weight 141.97 kg; iw Height 6 ft. 2 in. ; 15:08 Body Mass Index 40.19 (141.97 kg, 187.96 cm) iw MDM: 15:13 Patient medically screened. jmm Administered Medications: No medications were administered Disposition Summary: 08/29/22 15:26 Discharge Ordered Location: Home jm Condition: Stable jm Diagnosis - Pilonidal cyst without abscess [facility] Followup: jmm - With: Private Physician - When: 2 - 3 days - Reason: Recheck today's complaints, Continuance of care, Re-evaluation by your physician Discharge Instructions: - Discharge Summary Sheet [facility] - Pilonidal Cyst [facility] Forms: - Work release form [facility] - Medication Reconciliation Form [facility] - Thank You Letter [facility] - Antibiotic Education [facility] - Prescription Opioid Use [facility] Signatures: Arben Leo PA PA jmm Williams, Irene, RN RN iw
[2022-08-29 16:09] VITALS: BP 145/96; TEMP 97.2; O2SAT 100
== END 2022-08-29 16:04 | disposition home or self-care (01) ==
LOC: ER 15:00
DX: L05.91 Pilonidal cyst without abscess (principal); I10 Essential (primary) hypertension

== ENCOUNTER 2023-02-22 04:14 | Emergency (ER) | payer OTHER ==
--- NOTE | 2023-02-22 04:34 | EDPHYS ---
Physician Documentation [facility] Name: Jean Bautista Age: 43 yrs Sex: Male : 1980 Arrival Date: 02/22/2023 Time: 04:14 Bed 13 Private MD: ED Physician Olivia Malone HPI: 02/22 04:27 This 43 yrs old Male presents to ER via Unassigned with complaints of Drainage From sp3 Eye, Eye Pain. 04:27 43-year-old male with history of hypertension presents with left eye swelling and sp3 drainage and conjunctival erythema for approximately 2 days. He denies any other symptoms including fever, headache, upper respiratory symptoms, cough, chest pain, shortness of breath, vomiting, diarrhea, or any other signs or symptoms on ROS at this time. Patient does not wear corrective lenses or contact lenses has not had similar symptoms in the recent past.. Historical: - Allergies: 04:34 No Known Allergies; vc1 - PMHx: 04:34 Hypertension; vc1 - PSHx: 04:34 None; vc1 - Immunization history:: Client reports having NOT received the Covid vaccine. Flu vaccine is not up to date. - Social history:: Smoking status: Patient reports the use of cigarette tobacco products, smokes one-half pack cigarettes per day. ROS: 04:28 Constitutional: Negative for fever, chills, and weight loss, ENT: Negative for injury, sp3 pain, and discharge, Neck: Negative for injury, pain, and swelling, Cardiovascular: Negative for chest pain, palpitations, and edema, Respiratory: Negative for shortness of breath, cough, wheezing, and pleuritic chest pain, Abdomen/GI: Negative for abdominal pain, nausea, vomiting, diarrhea, and constipation, Back: Negative for injury and pain, MS/Extremity: Negative for injury and deformity, Skin: Negative for injury, rash, and discoloration, Neuro: Negative for headache, weakness, numbness, tingling, and seizure, Psych: Negative for depression, anxiety, suicide ideation, homicidal ideation, and hallucinations, Allergy/Immunology: Negative for hives, rash, and allergies, 04:28 All other systems are negative, Exam: 04:28 Constitutional: This is a well developed, well nourished patient who is awake, alert, sp3 and in no acute distress. Head/Face: Normocephalic, atraumatic. ENT: Nares patent. No nasal discharge, no septal abnormalities noted. External auditory canals are clear. Oropharynx with no redness, swelling, or masses, exudates, or evidence of obstruction, uvula midline. Mucous membranes moist. Neck: Trachea midline, no thyromegaly or masses palpated, and no cervical lymphadenopathy. Supple, full range of motion without nuchal rigidity, or vertebral point tenderness. No Meningismus. Chest/axilla: Normal chest wall appearance and motion. Nontender with no deformity. No lesions are appreciated. Cardiovascular: Regular rate and rhythm with a normal S1 and S2. No gallops, murmurs, or rubs. Normal PMI, no JVD. No pulse deficits. Respiratory: Lungs have equal breath sounds bilaterally, clear to auscultation and percussion. No rales, rhonchi or wheezes noted. No increased work of breathing, no retractions or nasal flaring. Abdomen/GI: Soft, non-tender, with normal bowel sounds. No distension or tympany. No guarding or rebound. No evidence of tenderness throughout. Back: No spinal tenderness. No costovertebral tenderness. Full range of motion. Skin: Warm, dry with normal turgor. Normal color with no rashes, no lesions, and no evidence of cellulitis. 04:28 Eyes: Patient has erythematous serosanguineous drainage coming from left eye. Anterior chamber is normal with no hyphema. Pupils equal round reactive to light. Extraocular movements are intact. Visual acuity is normal.. Vital Signs: 04:32 BP 164 / 100; Pulse 75; Resp 16; Temp 98.1; Pulse Ox 97% ; Weight 136.08 kg; Height 6 vc1 ft. 2 in. ; 04:32 Body Mass Index 38.52 (136.08 kg, 187.96 cm) vc1 MDM: 04:24 Patient medically screened. sp3 04:33 Data reviewed: vital signs, nurses notes. ED course: Patient with conjunctivitis. We sp3 will safely discharge him home on topical antibiotic to prevent secondary bacterial infection as this is likely viral. Follow-up to PCP.. Administered Medications: No medications were administered Disposition Summary: 02/22/23 04:34 Discharge Ordered Notes: Location: Home sp3 Condition: Stable sp3 Diagnosis - Conjunctivitis left eye sp3 Followup: sp3 - With: Private Physician - When: Upon discharge from the Emergency Department - Reason: Continuance of care Discharge Instructions: - Discharge Summary Sheet sp3 - Bacterial Conjunctivitis, Adult sp3 Forms: - Medication Reconciliation Form sp3 - Thank You Letter sp3 - Antibiotic Education sp3 - Prescription Opioid Use sp3 - Patient Portal Instructions sp3 - Leadership Thank You Letter sp3 - Work release form pf1 Prescriptions: - Vigamox 0.5 % Ophthalmic Drops - instill 1 drop OPHTHALMIC route every 8 hours for 7 days; 5 milliliter; sp3 Refills: 0, Product Selection Permitted Signatures: Olivia Malone MD MD sp3 Talya Ny RN RN vc1
--- NOTE | 2023-02-22 04:34 | ER ---
Nurse's Notes [facility] Name: Jean Bautista Age: 43 yrs Sex: Male : 1980 Arrival Date: 02/22/2023 Time: 04:14 Bed 13 Private MD: Diagnosis: Conjunctivitis left eye Presentation: 02/22 04:32 Chief complaint: Patient states: I have some greenish yellow stuff coming from my left vc1 eye. Coronavirus screen: Vaccine status: Patient reports being unvaccinated. Client denies travel out of the [place] in the last 14 days. At this time, the client does not indicate any symptoms associated with coronavirus-19. Ebola Screen: Patient negative for fever greater than or equal to 101.5 degrees Fahrenheit, and additional compatible Ebola Virus Disease symptoms Patient denies exposure to infectious person. Patient denies travel to an Ebola-affected area in the 21 days before illness onset. No symptoms or risks identified at this time. Mechanism of Injury: No Mechanism of Injury. The patient denies any loss of vision. Initial Sepsis Screen: Does the patient meet any 2 criteria? No. Patient's initial sepsis screen is negative. Does the patient have a suspected source of infection? No. Patient's initial sepsis screen is negative. Risk Assessment: Do you want to hurt yourself or someone else? Patient reports no desire to harm self or others. Onset of symptoms is unknown. 04:32 Method Of Arrival: Ambulatory vc1 04:32 Acuity: ELIZA 5 vc1 Triage Assessment: 04:35 General: Appears in no apparent distress. comfortable, Behavior is calm, cooperative, vc1 appropriate for age. EENT: Sclera/Cornea are reddened in right eye and left eye Reports eye discharge. Historical: - Allergies: 04:34 No Known Allergies; vc1 - PMHx: 04:34 Hypertension; vc1 - PSHx: 04:34 None; vc1 - Immunization history:: Client reports having NOT received the Covid vaccine. Flu vaccine is not up to date. - Social history:: Smoking status: Patient reports the use of cigarette tobacco products, smokes one-half pack cigarettes per day. Screenin:33 [facility] ED Fall Risk Assessment (Adult) History of falling in the last 3 months, pf1 including since admission No falls in past 3 months (0 pts) Confusion or Disorientation No (0 pts) Intoxicated or Sedated No (0 pts) Impaired Gait No (0 pts) Mobility Assist Device Used No (0 pt) Altered Elimination No (0 pt) Score/Fall Risk Level 0 - 2 = Low Risk Oriented to surroundings, Maintained a safe environment, Educated pt \T\ family on fall prevention, incl call for assistance when getting out of bed, Assessed \T\ reinforced patient's understanding of fall precautions, Provided non-skid footwear, Hourly rounding (assess needs \T\ fall precautionary measures) done, Used ambulatory aids as needed (educated on \T\ assisted with), Used gait belt as appropriate. Abuse screen: Denies threats or abuse. Nutritional screening: No deficits noted. Tuberculosis screening: No symptoms or risk factors identified. Assessment: 04:31 General: Appears in no apparent distress. comfortable, obese, well developed, Behavior pf1 is calm, cooperative, appropriate for age, quiet. Pain: Denies pain. Neuro: No deficits noted. Level of Consciousness is awake, alert, obeys commands, Oriented to person, place, time, situation. Cardiovascular: No deficits noted. Capillary refill < 3 seconds Patient's skin is warm and dry. Respiratory: No deficits noted. Airway is patent Respiratory effort is even, unlabored, Respiratory pattern is regular, symmetrical. GI: No deficits noted. No signs and/or symptoms were reported involving the gastrointestinal system. : No deficits noted. No signs and/or symptoms were reported regarding the genitourinary system. EENT: Sclera/Cornea are reddened in outer aspect of conjuctiva of left eye and inner aspect of conjunctiva of left eye with yellow to green discharge from left eye. Reports. Derm: No deficits noted. No signs and/or symptoms reported regarding the dermatologic system. Vital Signs: 04:32 BP 164 / 100; Pulse 75; Resp 16; Temp 98.1; Pulse Ox 97% ; Weight 136.08 kg; Height 6 vc1 ft. 2 in. ; 04:32 Body Mass Index 38.52 (136.08 kg, 187.96 cm) vc1 ED Course: 04:18 Patient arrived in ED. jj6 04:21 Olivia Malone MD is Attending Physician. sp3 04:33 Patient has correct armband on for positive identification. Bed in low position. Call pf1 light in reach. 04:33 Arm band placed on right wrist. pf1 04:33 No provider procedures requiring assistance completed. Patient did not have IV access pf1 during this emergency room visit. 04:34 Triage completed. vc1 04:44 Provided Education on: prescription. pf1 Administered Medications: No medications were administered Medication: 04:35 VIS not applicable for this client. vc1 Outcome: :34 Discharge ordered by . sp3 04:44 Discharged to home ambulatory, with family, pf1 04:44 Condition: unchanged 04:44 Discharge instructions given to patient, Instructed on discharge instructions, follow up and referral plans. Demonstrated understanding of instructions, follow-up care, medications, Prescriptions given X 1, :45 Patient left the ED. pf1 Signatures: Olivia Malone MD MD sp3 Chante Michelle6 Talya Ny RN RN vc1 Becky Orourke RN RN pf1
[2023-02-22 05:59] VITALS: BP 164/100; TEMP 98.1; O2SAT 97
== END 2023-02-22 04:45 | disposition home or self-care (01) ==
LOC: ER 04:14
DX: H10.9 Unspecified conjunctivitis (principal)
CPT/HCPCS: 99283

== ENCOUNTER 2023-03-24 16:28 | Emergency (ER) | payer OTHER ==
[2023-03-24 17:01] LABS: SARS-CoV-2 Antigen Rapid Res Negative (Negative)
--- NOTE | 2023-03-24 17:50 | ER ---
Nurse's Notes [facility] Name: Jean Bautista Age: 43 yrs Sex: Male : 1980 Arrival Date: 03/24/2023 Time: 16:28 Bed DX3 Private MD: Diagnosis: Influenza due to other identified influenza virus with other respiratory manifestations-Influenza B;Acute upper respiratory infection, unspecified;Fever, unspecified Presentation: 03/24 16:33 Chief complaint: Patient states: Congestion, headache, cough, runny nose for a week. bp Sent over to hospital from work because he had a fever there. Took dayquil and motrin prior to arrival. Coronavirus screen: Vaccine status: Patient reports being unvaccinated. Ebola Screen: Patient denies travel to an Ebola-affected area in the 21 days before illness onset. Initial Sepsis Screen: Does the patient meet any 2 criteria? No. Patient's initial sepsis screen is negative. Does the patient have a suspected source of infection? No. Patient's initial sepsis screen is negative. Risk Assessment: Do you want to hurt yourself or someone else? Patient reports no desire to harm self or others. Onset of symptoms was March 2023. 16:33 Method Of Arrival: Ambulatory bp 16:33 Acuity: ELIZA 4 bp Historical: - Allergies: 16:35 No Known Allergies; bp - PMHx: 16:35 Hypertension; bp - Immunization history:: Client reports having NOT received the Covid vaccine. - Social history:: Smoking status: Reported history of juuling and/or vaping. - Family history:: not pertinent. Assessment: 18:10 Reassessment: Patient is alert, oriented x 3, equal unlabored respirations, skin aa5 warm/dry/pink. Vital Signs: 16:33 BP 176 / 98; Pulse 71; Resp 18; Temp 98.2; Pulse Ox 98% on R/A; Weight 136.08 kg; bp Height 6 ft. 2 in. ; 16:33 Body Mass Index 38.52 (136.08 kg, 187.96 cm) bp ED Course: 16:30 Patient arrived in ED. im 16:34 Mahesh Rodríguez MD is Attending Physician. mohit 16:35 Triage completed. bp 16:36 Arm band placed on left wrist. bp 18:10 No provider procedures requiring assistance completed. Patient did not have IV access aa5 during this emergency room visit. Administered Medications: 18:08 Drug: AZITHromycin PO 500 mg PO once Route: PO; aa5 18:08 Drug: Oseltamivir PO 75 mg PO once Route: PO; aa5 Outcome: 17:49 Discharge ordered by . mohit 18:10 Discharged to home ambulatory, aa5 18:10 Condition: stable 18:10 Discharge instructions given to patient, Instructed on discharge instructions, follow up and referral plans. medication usage, Demonstrated understanding of instructions, follow-up care, medications, Prescriptions given X 3, 18:10 Patient left the ED. aa5 Signatures: Mahesh Rodríguez MD MD cha Calderon, Audri, RN RN aaTrever Balderas, HEATHER RN Brianna Zhu
--- NOTE | 2023-03-24 17:50 | EDPHYS ---
Physician Documentation [facility] Name: Jean Bautista Age: 43 yrs Sex: Male : 1980 Arrival Date: 03/24/2023 Time: 16:28 Bed DX3 Private MD: ED Physician Mahesh Rodríguez HPI: 03/24 17:40 This 43 yrs old Male presents to ER via Ambulatory with complaints of Flu mohit Symptoms. 17:40 The patient or guardian reports cough, flu symptoms, arthralgias, low-grade fever, mohit myalgias. Onset: The symptoms/episode began/occurred 1 day(s) ago. Modifying factors: The symptoms are alleviated by nothing. the symptoms are aggravated by nothing. fever , cough , body achs x 3 days. Associated signs and symptoms: The patient has no apparent associated signs or symptoms. The patient reports fever, that was measured at 100 degrees Fahrenheit. Modifying factors: there are no obvious modifying factors. Severity of symptoms: At their worst the symptoms were mild in the emergency department the symptoms are unchanged. Historical: - Allergies: 16:35 No Known Allergies; bp - PMHx: 16:35 Hypertension; bp - Immunization history:: Client reports having NOT received the Covid vaccine. - Social history:: Smoking status: Reported history of juuling and/or vaping. - Family history:: not pertinent. ROS: 17:40 Constitutional: Negative for fever, chills, and weight loss, Eyes: Negative for injury, mohit pain, redness, and discharge, Neck: Negative for injury, pain, and swelling, Cardiovascular: Negative for chest pain, palpitations, and edema, Respiratory: Negative for shortness of breath, cough, wheezing, and pleuritic chest pain, Abdomen/GI: Negative for abdominal pain, nausea, vomiting, diarrhea, and constipation, Back: Negative for injury and pain, : Negative for injury, bleeding, discharge, and swelling, MS/Extremity: Negative for injury and deformity, Skin: Negative for injury, rash, and discoloration, Neuro: Negative for headache, weakness, numbness, tingling, and seizure, Psych: Negative for depression, anxiety, suicide ideation, homicidal ideation, and hallucinations, Allergy/Immunology: Negative for hives, rash, and allergies, Endocrine: Negative for neck swelling, polydipsia, polyuria, polyphagia, and marked weight changes, Hematologic/Lymphatic: Negative for swollen nodes, abnormal bleeding, and unusual bruising, 17:40 ENT: Positive for rhinorrhea, sinus congestion, sore throat, Exam: 17:40 Constitutional: This is a well developed, well nourished patient who is awake, alert, mohit and in no acute distress. Head/Face: Normocephalic, atraumatic. Eyes: Pupils equal round and reactive to light, extra-ocular motions intact. Lids and lashes normal. Conjunctiva and sclera are non-icteric and not injected. Cornea within normal limits. Periorbital areas with no swelling, redness, or edema. ENT: Nares patent. No nasal discharge, no septal abnormalities noted. Tympanic membranes are normal and external auditory canals are clear. Oropharynx with no redness, swelling, or masses, exudates, or evidence of obstruction, uvula midline. Mucous membranes moist. Neck: Trachea midline, no thyromegaly or masses palpated, and no cervical lymphadenopathy. Supple, full range of motion without nuchal rigidity, or vertebral point tenderness. No Meningismus. Chest/axilla: Normal chest wall appearance and motion. Nontender with no deformity. No lesions are appreciated. Cardiovascular: Regular rate and rhythm with a normal S1 and S2. No gallops, murmurs, or rubs. Normal PMI, no JVD. No pulse deficits. Respiratory: Lungs have equal breath sounds bilaterally, clear to auscultation and percussion. No rales, rhonchi or wheezes noted. No increased work of breathing, no retractions or nasal flaring. Abdomen/GI: Soft, non-tender, with normal bowel sounds. No distension or tympany. No guarding or rebound. No evidence of tenderness throughout. Back: No spinal tenderness. No costovertebral tenderness. Full range of motion. Male : Normal genitalia with no discharge or lesions. Skin: Warm, dry with normal turgor. Normal color with no rashes, no lesions, and no evidence of cellulitis. MS/ Extremity: Pulses equal, no cyanosis. Neurovascular intact. Full, normal range of motion. Neuro: Awake and alert, GCS 15, oriented to person, place, time, and situation. Cranial nerves II-XII grossly intact. Motor strength 5/5 in all extremities. Sensory grossly intact. Cerebellar exam normal. Normal gait. Psych: Awake, alert, with orientation to person, place and time. Behavior, mood, and affect are within normal limits. 17:40 Musculoskeletal/extremity: DVT Exam: No signs of deep vein thrombosis. no pain, no swelling, no tenderness, negative Homans' sign noted on exam, no appreciated bluish discoloration, no erythema, no increased warmth, Vital Signs: 16:33 BP 176 / 98; Pulse 71; Resp 18; Temp 98.2; Pulse Ox 98% on R/A; Weight 136.08 kg; bp Height 6 ft. 2 in. ; 16:33 Body Mass Index 38.52 (136.08 kg, 187.96 cm) bp MDM: 16:34 Patient medically screened. mohit 17:45 Differential diagnosis: obstructed airway, tracheal injury, bronchitis, flu, URI, viral mohit Infection, bacterial infection, URI, bronchitis. Antibiotic administration: The patient is discharged and will get outpatient antibiotics, Tamiflu, Zithromax. Differential Diagnosis sepsis, flu. Data reviewed: vital signs, nurses notes, lab test result(s), Flu: positive. Consideration of Admission/Observation Escalation of care including admission/observation considered. I considered the following discharge prescriptions or medication management in the emergency department Medications were administered in the Emergency Department. See MAR. Test considered but Not performed: Labs: no cbc , no comp met. 03/24 16:34 Order name: Flu; Complete Time: 17:31 [facility] 03/24 16:34 Order name: SARS RAPID; Complete Time: 17:31 mohit Administered Medications: 18:08 Drug: AZITHromycin PO 500 mg PO once Route: PO; aa5 18:08 Drug: Oseltamivir PO 75 mg PO once Route: PO; aa5 Disposition Summary: 03/24/23 17:49 Discharge Ordered Notes: Location: Home [facility] Problem: new [facility] Symptoms: have improved mohit Condition: Stable [facility] Diagnosis - Influenza due to other identified influenza virus with other respiratory [facility] manifestations - Influenza B - Acute upper respiratory infection, unspecified mohit - Fever, unspecified mohit Followup: mohit - With: Private Physician - When: 2 - 3 days - Reason: Recheck today's complaints, Continuance of care, Re-evaluation by your physician Discharge Instructions: - Discharge Summary Sheet mohit - Influenza, Adult mohit - Upper Respiratory Infection, Adult mohit - Cool Mist Vaporizer mohit - Influenza Tests mohit - Upper Respiratory Infection, Adult, [id number] mohit - Influenza, Adult, [id number] [facility] - Cough, Adult [facility] Forms: - Medication Reconciliation Form [facility] - Thank You Letter mohit - Antibiotic Education mohit - Prescription Opioid Use mohit - Patient Portal Instructions mohit - Leadership Thank You Letter mohit - Work release form aa5 Prescriptions: - Tessalon Perles 100 mg Oral capsule - take 2 capsule ORAL route every 8 hours As needed; 45 capsule; Refills: 0, [facility] Product Selection Permitted - Tamiflu 75 mg Oral capsule - take 1 tablet ORAL route every 12 hours for 5 days; 10 tablet; Refills: 0, [facility] Product Selection Permitted - Zithromax 500 mg Oral Tablet - take 1 tablet ORAL route once daily for 5 days; 5 tablet; Refills: 0, Product [facility] Selection Permitted Signatures: Dispatcher [employer] Mahesh Lion MD MD cha Calderon, Audri, RN RN aa5 Trever Jessica RN RN bp
[2023-03-24] MEDS ORDERED: OSELTAMIVIR 75 MG CAP PO ONE (18:03)
[2023-03-24] MEDS ORDERED: AZITHROMYCIN 250 MG TAB ONE (18:03)
[2023-03-24 18:40] VITALS: BP 176/98; TEMP 98.2; O2SAT 98
== END 2023-03-24 18:10 | disposition home or self-care (01) ==
LOC: ER 16:28
DX: J10.1 Influenza due to other identified influenza virus with other respiratory manifestations (principal); Z11.52 Encounter for screening for COVID-19; I10 Essential (primary) hypertension; Z28.310 Unvaccinated for COVID-19
CPT/HCPCS: 36415; 87804; 87811; 99283

== ENCOUNTER 2023-11-26 02:38 | Emergency (ER) | payer OTHER ==
--- NOTE | 2023-11-26 03:10 | ER ---
Nurse's Notes [facility] Name: Jean Bautista Age: 43 yrs Sex: Male : 1980 Arrival Date: 11/26/2023 Time: 02:38 Bed 6 Private MD: Diagnosis: Dental Abscess Presentation: 11/25 02:55 Chief complaint: Patient states: R side jaw swelling and pain x3 days. states he has an al5 infected tooth the R side, went to the dentist today and was prescribed amoxicillin. Coronavirus screen: At this time, the client does not indicate any symptoms associated with coronavirus-19. Ebola Screen: No symptoms or risks identified at this time. Initial Sepsis Screen: Does the patient meet any 2 criteria? No. Patient's initial sepsis screen is negative. Does the patient have a suspected source of infection? No. Patient's initial sepsis screen is negative. Risk Assessment: Do you want to hurt yourself or someone else? Patient reports no desire to harm self or others. Onset of symptoms was November 23, 2023. 02:55 Method Of Arrival: Ambulatory al5 02:55 Acuity: ELIZA 4 al5 Triage Assessment: 03:00 General: Appears in no apparent distress. uncomfortable, Behavior is calm, cooperative. al5 Pain: Complains of pain in right jaw Pain currently is 10 out of 10 on a pain scale. Pain began 2-3 days ago. Is continuous. EENT: No signs and/or symptoms were reported regarding the EENT system. Neuro: Level of Consciousness is awake, alert, obeys commands, Oriented to person, place, time, situation. Cardiovascular: Patient's skin is warm and dry. Respiratory: Airway is patent Respiratory effort is even, unlabored, Respiratory pattern is regular, symmetrical. GI: No signs and/or symptoms were reported involving the gastrointestinal system. : No signs and/or symptoms were reported regarding the genitourinary system. Derm: Skin Skin is pink, warm \T\ dry. normal. Musculoskeletal: No signs and/or symptoms reported regarding the musculoskeletal system. Historical: - Allergies: 03:00 No Known Allergies; al5 - PMHx: 03:00 Hypertension; al5 - PSHx: 03:00 None; al5 - Immunization history:: Adult Immunizations up to date. - Infectious Disease History:: Denies. - Social history:: Smoking status: Reported history of juuling and/or vaping. Screenin:10 [facility] ED Fall Risk Assessment (Adult) History of falling in the last 3 months, tm6 including since admission No falls in past 3 months (0 pts) Confusion or Disorientation No (0 pts) Intoxicated or Sedated No (0 pts) Impaired Gait No (0 pts) Mobility Assist Device Used No (0 pt) Altered Elimination No (0 pt) Score/Fall Risk Level 0 - 2 = Low Risk Oriented to surroundings, Maintained a safe environment, Educated pt \T\ family on fall prevention, incl call for assistance when getting out of bed. Abuse screen: Denies threats or abuse. Denies injuries from another. Nutritional screening: No deficits noted. Tuberculosis screening: No symptoms or risk factors identified. Assessment: 03:10 General: Appears uncomfortable, Behavior is calm, cooperative. Pain: Complains of pain tm6 in right jaw Pain does not radiate. Pain currently is 10 out of 10 on a pain scale. Quality of pain is described as aching. Neuro: Level of Consciousness is awake, alert, obeys commands, Oriented to person, place, time, situation. Cardiovascular: Patient's skin is warm and dry. Respiratory: Airway is patent Respiratory effort is even, unlabored, Respiratory pattern is regular, symmetrical. GI: No signs and/or symptoms were reported involving the gastrointestinal system. Abdomen is round non-distended. : No signs and/or symptoms were reported regarding the genitourinary system. EENT: Reports pain in right jaw. Derm: No signs and/or symptoms reported regarding the dermatologic system. Musculoskeletal: No signs and/or symptoms reported regarding the musculoskeletal system. Vital Signs: 02:55 BP 162 / 101; Pulse 70; Resp 18; Temp 98; Pulse Ox 100% ; Weight 136.08 kg; Height 6 al5 ft. 1 in. ; Pain 10/10; 03:44 BP 139 / 99; Pulse 68; Resp 19; Temp 98.1; Pulse Ox 100% on R/A; Pain 7/10; tm6 02:55 Body Mass Index 39.58 (136.08 kg, 185.42 cm) al5 02:55 Pain Scale: Adult al5 03:44 Pain Scale: Adult tm6 ED Course: 02:40 Patient arrived in ED. jj6 02:41 Damon Lott MD is Attending Physician. ec2 02:47 Sheree Romero, HEATHER is Primary Nurse. al5 03:00 Triage completed. al5 03:10 Patient has correct armband on for positive identification. Bed in low position. Call tm6 light in reach. Side rails up X 1. Provided Education on: use of call ivan. Client placed on continuous cardiac and pulse oximetry monitoring. NIBP monitoring applied. Pulse ox on. NIBP on. Door closed. Noise minimized. 03:14 Arm band placed on right wrist. Patient placed in the treatment room, on a stretcher. al5 03:44 No provider procedures requiring assistance completed. Patient did not have IV access tm6 during this emergency room visit. Administered Medications: 03:40 Not Given (medication not availablee): viscous lidocaineliquid (4 %) 10 ml Mucous al5 Membrane once 03:41 Drug: Trimethoprim-Sulfamethoxazole PO (160 mg-800 mg (DS) 1 tablet PO once Route: PO; al5 03:41 Follow up: Response: Medication administered at discharge. tm6 03:41 Drug: Ketorolac IM 30 mg IM once Route: IM; Site: right deltoid; al5 03:41 Follow up: Response: Medication administered at discharge. tm6 03:41 Drug: Acetaminophen-Codeine PO (300 mg-30 mg) 2 tabs PO once; RASS on ADMIN: Combtv4, al5 Very Agttd3, Agttd2, Rstlss1, AlertClm0, Drwsy-1, Lt Sdtn-2, Mod Sdtn-3, Dp Sdtn-4, UnArsble-5 Route: PO; 03:42 Follow up: Response: Medication administered at discharge. tm6 Medication: 03:44 VIS not applicable for this client. tm6 Outcome: 03:09 Discharge ordered by . ec2 03:44 Discharged to home ambulatory, tm6 03:44 Condition: stable 03:44 Discharge instructions given to patient, Instructed on discharge instructions, follow up and referral plans. medication usage, Demonstrated understanding of instructions, follow-up care, medications, Prescriptions given X 1, 03:45 Patient left the ED. tm6 Signatures: Chante Michelle jj6 Damon Lott MD MD ec2 Kathleen Roth RN RN tm6 Sheree Romero, RN RN al5
--- NOTE | 2023-11-26 03:10 | EDPHYS ---
Physician Documentation [facility] Name: Jean Bautista Age: 43 yrs Sex: Male : 1980 Arrival Date: 11/26/2023 Time: 02:38 Bed 6 Private MD: ED Physician Damon Lott HPI: 11/25 03:10 This 43 yrs old Male presents to ER via Ambulatory with complaints of Facial ec2 Swelling. 03:10 Patient arrives today due to concern for dentalgia. Patient reports that he was told he ec2 has a dental infection by his dentist earlier today, started on Bactrim however he has not picked up the antibiotics. Patient reports no fevers or chills, no nausea or vomiting, no trismus, no issues with secretions. Patient has not taken medications for symptoms.. Historical: - Allergies: 03:00 No Known Allergies; al5 - PMHx: 03:00 Hypertension; al5 - PSHx: 03:00 None; al5 - Immunization history:: Adult Immunizations up to date. - Infectious Disease History:: Denies. - Social history:: Smoking status: Reported history of juuling and/or vaping. ROS: 03:10 Constitutional: as per hpi ec2 Exam: 03:10 Constitutional: GEN: NAD Head: atraumatic Eyes: EOMI Ears: External ears are normal. ec2 Mouth: Poor dentition throughout, dental carry noted in the right lower teeth. Pain, no overlying soft tissue swelling, no fluctuance appreciated, no submandibular swelling appreciated. No overlying erythema or warmth. CV: regular rate LUNGS: no respiratory distress ABD: non-distended SKIN: no evidence of rashes MSK: no evidence of trauma Vital Signs: 02:55 BP 162 / 101; Pulse 70; Resp 18; Temp 98; Pulse Ox 100% ; Weight 136.08 kg; Height 6 al5 ft. 1 in. ; Pain 10/10; 03:44 BP 139 / 99; Pulse 68; Resp 19; Temp 98.1; Pulse Ox 100% on R/A; Pain 7/10; tm6 02:55 Body Mass Index 39.58 (136.08 kg, 185.42 cm) al5 02:55 Pain Scale: Adult al5 03:44 Pain Scale: Adult tm6 MDM: 02:45 Patient medically screened. ec2 03:10 Data reviewed: vital signs. ED course: Patient arrives today for evaluation of dental ec2 pain. Examination remarkable for well-appearing nontoxic individuals otherwise in no acute distress with dental findings as above. Suspect dental abscess. Patient already prescribed Bactrim which she has not picked up, will give him first dose of Bactrim here, given pain medications. Will discharge to home. Patient otherwise nontoxic appearing. Low suspicion for surgical abscess, will accordingly forego lab work or CT imaging of the face.. Administered Medications: 03:40 Not Given (medication not availablee): viscous lidocaineliquid (4 %) 10 ml Mucous al5 Membrane once 03:41 Drug: Trimethoprim-Sulfamethoxazole PO (160 mg-800 mg (DS) 1 tablet PO once Route: PO; al5 03:41 Follow up: Response: Medication administered at discharge. tm6 03:41 Drug: Ketorolac IM 30 mg IM once Route: IM; Site: right deltoid; al5 03:41 Follow up: Response: Medication administered at discharge. tm6 03:41 Drug: Acetaminophen-Codeine PO (300 mg-30 mg) 2 tabs PO once; RASS on ADMIN: Combtv4, al5 Very Agttd3, Agttd2, Rstlss1, AlertClm0, Drwsy-1, Lt Sdtn-2, Mod Sdtn-3, Dp Sdtn-4, UnArsble-5 Route: PO; 03:42 Follow up: Response: Medication administered at discharge. tm6 Disposition Summary: 11/26/23 03:09 Discharge Ordered Notes: Location: Home ec2 Condition: Stable ec2 Diagnosis - Dental Abscess ec2 Followup: ec2 - With: Private Physician - When: - Reason: Re-evaluation by your physician Discharge Instructions: - Discharge Summary Sheet ec2 - Dental Abscess, [id number] ec2 Forms: - Medication Reconciliation Form ec2 - Antibiotic Education ec2 - Prescription Opioid Use ec2 - Patient Portal Instructions ec2 - Leadership Thank You Letter ec2 Prescriptions: - acetaminophen-codeine 300-30 mg Oral tablet - take 1 tablet ORAL route every 8 hours; 15 tablet; Refills: 0, Product ec2 Selection Permitted Signatures: Damon Lott MD MD ec2 Sheree Romero RN RN al5 Gonzalez, Tawney RN tm6 Corrections: (The following items were deleted from the chart) 03:41 03:08 Misc. Order ordered. ec2 tm6
[2023-11-26] MEDS ORDERED: KETOROLAC 30 MG/ML INJ ONE (03:24)
[2023-11-26] MEDS ORDERED: CODEINE 30MG/APAP 300MG TAB ONE (03:24)
[2023-11-26] MEDS ORDERED: SMZ./TMP. 800/160 MG TABLET ONE (03:24)
[2023-11-26 04:10] VITALS: O2SAT 100
[2023-11-26 04:12] VITALS: BP 139/99; TEMP 98.1
== END 2023-11-26 03:45 | disposition home or self-care (01) ==
LOC: ER 02:38
DX: K04.7 Periapical abscess without sinus (principal)
CPT/HCPCS: 96372; 99284